=== PATIENT | female | born 1960 | race American Indian/Alaskan Native ===

== ENCOUNTER 2017-01-10 09:23 | Outpatient (CLI) | payer MEDICARE ==
--- NOTE | 2017-01-10 10:38 | Mammography Report ---
BILATERAL DIGITAL DIAGNOSTIC MAMMOGRAM with CAD: 01/10/17 09:23:00 CLINICAL: Bilateral breast pain. COMPARISON:12/24/15 FINDINGS: The breasts are almost entirely fatty.No mass, architectural distortion or suspicious calcifications. Clips in the inner left breast. Bilateral benign calcifications. IMPRESSION: No mammographic evidence of malignancy.No explanation for bilateral breast pain. BI-RADS CATEGORY: 2 - - Benign RECOMMENDATION: Clinical followup and routine mammographic screening in one year. ACR BI-RADS MAMMOGRAPHIC CODES: 0 = Needs additional imaging evaluation; 1 = Negative; 2 = Benign; 3 = Probably benign; 4 = Suspicious; 5 = Malignant; 6 = Known biopsy-proven malignancy COMMENT: 1. Dense breast tissue, i.e., adenosis, fibrocystic changes, etc., may obscure an underlying neoplasm. 2. Approximately 10% of cancers are not detected with mammography. 3. A negative mammography report should not delay biopsy if a clinically suspicious mass is present. COMMENT: Patient follow-up letters are generated by our [employer] application.
== END 2017-01-10 09:24 | disposition home or self-care (01) ==
LOC: SPVWC 09:23
PROVIDERS: ATTEND Family Medicine
DX: N64.4 Mastodynia (principal)
CPT/HCPCS: 77066; G0204

== ENCOUNTER 2017-10-05 10:38 | Outpatient (CLI) | payer MEDICARE ==
--- NOTE | 2017-10-05 12:35 | Mammography Report ---
LEFT DIGITAL DIAGNOSTIC MAMMOGRAM with CAD and LEFT BREAST ULTRASOUND: 10/05/17 10:38:00 CLINICAL: Left breast mass. The patient was vague and could not point to a specific lump. COMPARISON:01/10/17 screening mammogram FINDINGS: The breast is almost entirely fatty.No mass, architectural distortion or suspicious calcifications. Stable benign calcifications. Surgical clips in the inner breast. Ultrasound of the left breast was performed in the lower outer quadrant where she describes having felt a lump previously. It demonstrated normal fatty and normal fibroglandular structures with no mass, cyst or shadowing. IMPRESSION: Negative mammogram and negative left breast ultrasound. BI-RADS CATEGORY: 2 - - Benign RECOMMENDATION: Clinical followup and routine mammographic screening. ACR BI-RADS MAMMOGRAPHIC CODES: 0 = Needs additional imaging evaluation; 1 = Negative; 2 = Benign; 3 = Probably benign; 4 = Suspicious; 5 = Malignant; 6 = Known biopsy-proven malignancy COMMENT: 1. Dense breast tissue, i.e., adenosis, fibrocystic changes, etc., may obscure an underlying neoplasm. 2. Approximately 10% of cancers are not detected with mammography. 3. A negative mammography report should not delay biopsy if a clinically suspicious mass is present. COMMENT: Patient follow-up letters are generated by our [employer] application.
== END 2017-10-05 10:39 | disposition home or self-care (01) ==
LOC: SPVWC 10:38
PROVIDERS: ATTEND Family Medicine
DX: R92.8 Other abnormal and inconclusive findings on diagnostic imaging of breast (principal)
CPT/HCPCS: 76642; G0206

== ENCOUNTER 2018-02-02 09:06 | Outpatient (CLI) | payer MEDICARE ==
--- NOTE | 2018-02-02 11:23 | Mammography Report ---
BILATERAL MAMMOGRAM: FINDINGS: The breasts are almost entirely fat (<25% glandular). No mass, distortion, suspicious calcification, or skin change is seen. Surgical clips are noted in the medial left breast for benign disease. These findings are all unchanged compared to prior exams dating back to December 2015. CAD was utilized. IMPRESSION: Negative mammogram. There is no mammographic evidence of malignancy. RECOMMENDATION: Follow-up per ACS guidelines. BI-RADS CATEGORY: 1 = Negative ACR BI-RADS MAMMOGRAPHIC CODES: 0 = Needs additional imaging evaluation; 1 = Negative; 2 = Benign; 3 = Probably benign; 4 = Suspicious; 5 = Malignant; 6 = Known biopsy-proven malignancy COMMENT: 1. Dense breast tissue, i.e., adenosis, fibrocystic changes, etc., may obscure an underlying neoplasm. 2. Approximately 10% of cancers are not detected with mammography. 3. A negative mammography report should not delay biopsy if a clinically suspicious mass is present. COMMENT: Patient follow-up letters are generated in [employer].
== END 2018-02-02 09:07 | disposition home or self-care (01) ==
LOC: SPVWC 09:06
PROVIDERS: ATTEND Family Medicine
DX: Z12.31 Encounter for screening mammogram for malignant neoplasm of breast (principal)
CPT/HCPCS: 77067

== ENCOUNTER 2019-03-06 10:21 | Outpatient (CLI) | payer MEDICARE ==
--- NOTE | 2019-03-06 15:20 | Mammography Report ---
BILATERAL DIGITAL SCREENING MAMMOGRAM with CAD: 03/06/19 10:21:00 CLINICAL: Routine screening. COMPARISON:02/02/18 FINDINGS: The breasts are almost entirely fatty.Scattered bilateral benign calcifications. Surgical clips in the inner left breast. Minimal left postsurgical scar. No mass, architectural distortion or suspicious calcifications. IMPRESSION: No mammographic evidence of malignancy. BI-RADS CATEGORY: 2 -- Benign RECOMMENDATION: Routine mammographic screening in one year. COMMENT: Patient follow-up letters are generated by our [employer] application.
== END 2019-03-06 10:22 | disposition home or self-care (01) ==
LOC: SPVWC 10:21
PROVIDERS: ATTEND Family Medicine
DX: Z12.31 Encounter for screening mammogram for malignant neoplasm of breast (principal)
CPT/HCPCS: 77067

== ENCOUNTER 2020-06-17 10:04 | Outpatient (CLI) | payer MEDICARE ==
--- NOTE | 2020-06-17 15:22 | Mammography Report ---
DIGITAL SCREENING MAMMOGRAM WITH CAD, 06/17/2020 INDICATION: Routine screening mammography. SCREENING MAMMOGRAM TECHNIQUE: Digital bilateral 2D mammography was obtained in the craniocaudal and mediolateral obliq ue projections. This examination was interpreted with the benefit of Computer-Aided Detection analysi s. COMPARISON: 12/24/2015 FINDINGS: Breast Density: The breasts are almost entirely fatty. There is no evidence of dominant mass, suspicious calcifications or architectural distortion in eithe r breast. Old scar again noted in the left breast as well as scattered calcifications and nodules con taining calcifications most notably in the right breast. IMPRESSION: Follow up recommendation: Routine yearly BI-RADS Category 2: Benign. A "normal" or negative report should not discourage follow up or biopsy of a clinically significant f inding. A written summary of these findings will be mailed to the patient. The patient will be entered into a mammography reporting system which will generate a reminder letter for the patient's next appointmen t at the appropriate interval. The [employer] recommends yearly mammograms starting at age 40 and continuing as l eduin as a woman is in good health. Breast MRI is recommended for women with an approximate 20-25% or greater lifetime risk of breast cancer, including women with a strong family history of breast or ova sudarshan cancer or who have been treated for Hodgkin's disease. Signer Name: Rainer Quinonez MD Signed: 06/17/2020 3:18 PM Workstation Name: [id number]
== END 2020-06-17 10:05 | disposition home or self-care (01) ==
LOC: SPVWC 10:04
PROVIDERS: ATTEND Family Medicine
DX: Z12.31 Encounter for screening mammogram for malignant neoplasm of breast (principal); N64.89 Other specified disorders of breast
CPT/HCPCS: 77067

== ENCOUNTER 2021-05-26 09:30 | Outpatient (CLI) | payer MEDICARE ==
--- NOTE | 2021-05-27 08:19 | Ultrasound Report ---
BILATERAL DIGITAL DIAGNOSTIC MAMMOGRAM WITH CAD , 05/27/2021 LEFT LIMITED BREAST ULTRASOUND CLINICAL INFORMATION / INDICATION: Left breast pain HISTORY OF benign left LUMPECTOMY TECHNIQUE: Digital bilateral mammographic imaging was performed. Limited ultrasound was performed. Th is examination was interpreted with the benefit of Computer-Aided Detection (CAD) analysis. COMPARISON: 05/28/2020, 12/24/2015 FINDINGS: Breast Density: The breasts are almost entirely fatty. MAMMOGRAPHIC FINDINGS: No dominant mass, suspicious calcifications, or architectural distortion in ei ther breast. There are a few scattered benign calcifications bilaterally. Postsurgical scar with 2 va scular clips are present in the central left breast. Overall, no interval change. No mammographic cor relate for the complaint of breast pain noted. ULTRASOUND FINDINGS: Targeted ultrasound evaluation was performed of the area of interest. Sonograp hic evaluation of the upper outer quadrant of the breast does not demonstrate any sonographic abnorma lity to account for the patient's complaint of pain. There is no visible solid mass, cyst, or focal a kathy of shadowing identified. IMPRESSION: No mammographic or sonographic evidence of malignancy. No mammographic or sonographic cor relate to account for the complaint of left breast pain. Please correlate clinically. Follow up recommendation: Routine yearly BI-RADS Category 2: Benign. A "normal" or negative report should not discourage follow up or biopsy of a clinically significant f inding. A written summary of these findings will be mailed to the patient. The patient will be entered into a mammography reporting system which will generate a reminder letter for the patient's next appointmen t at the appropriate interval. According to the [employer], yearly mammograms are recommended starting at age 40 and continuing as long as a woman is in good health. Breast MRI is recommended for women with an eduardo roximately 20-25% or greater lifetime risk of breast cancer, including women with a strong family his tory of breast or ovarian cancer and women who have been treated for Hodgkin's disease. Signer Name: Yun Simpson MD Signed: 05/27/2021 8:15 AM Workstation Name: [id number]
== END 2021-05-26 09:31 | disposition home or self-care (01) ==
LOC: SPVWC 09:30
PROVIDERS: ATTEND Internal Medicine
DX: R92.8 Other abnormal and inconclusive findings on diagnostic imaging of breast (principal); Z90.12 Acquired absence of left breast and nipple
CPT/HCPCS: 77066